=== PATIENT | female | born 1955 | race Caucasian/White ===

== ENCOUNTER 2016-10-18 08:59 | Outpatient (CLI) | payer OTHER ==
[2014-03-16 16:08] VITALS: BP 120/83
[2016-10-18 10:37] LABS: eGFR (African) > 60; eGFR (Non-African) > 60
== END 2016-10-18 09:00 ==
LOC: LAB 08:59
PROVIDERS: ATTEND Family Medicine
DX: E78.2 Mixed hyperlipidemia (principal)
CPT/HCPCS: 36415; 80053; 80061

== ENCOUNTER 2018-01-30 17:55 | Emergency (ER) | payer OTHER ==
[2018-01-30 18:08] VITALS: BP 120/68
--- NOTE | 2018-01-30 18:27 | ED Physician Documentation ---
General Adult - HISTORIAN Historian: patient - HPI Stated Complaint: TOE PAIN Chief Complaint: General Adult Onset: hours Timing: still present Severity: moderate Further Comments: yes (Pt is a 62 yo female who partially avulsed the toenail of her L great toe. Pt was wearing sandals while cleaning the refrigerator and stubbed her toe on a metal lip on the bottom of the fridge, pulling her L great toenail back.) - ROS CONST: no problems EYES/ENT: none CVS/RESP: none GI/: none MS/SKIN/LYMPH: other (L great toenail injury) - PAST HX Past History: other (Heart Dz, HLD, HTN) Allergies/Adverse Reactions: Allergies Allergy/AdvReac Type Severity Reaction Status Date / Time buspirone HCl [From BuSpar] Allergy Unknown Verified 01/30/18 18:08 morphine Allergy Unknown Verified 01/30/18 18:08 niacin Allergy Unknown Verified 01/30/18 18:08 Penicillins Allergy Unknown Verified 01/30/18 18:08 Home Medications: Ambulatory Orders Medication Instructions Recorded Aspirin EC [Ecotrin] 81 mg PO DAILY 03/16/14 Calcium Carb 600Mg/Vit D-3 400 1 tab PO DAILY 03/16/14 [CALTRATE WITH D-3] - SOCIAL HX Smoking History: quit greater than 1 year - FAMILY HX Family History: No - VITAL SIGNS Vital Signs: Vital Signs Temp Pulse Resp BP Pulse Ox 96.7 F L 83 22 120/68 97 01/30/18 18:05 01/30/18 18:05 01/30/18 18:05 01/30/18 18:05 01/30/18 18:05 - REVIEWED ASSESSMENTS Nursing Assessment Reviewed: Yes Vitals Reviewed: Yes Progress - Progress Progress: Nail taped in place in ER. Triple Antibiotic applied. Tetanus utd. D/c instructions: Tape nail to keep it in place and so that you don't disturb it again, as when taking off your socks or shoes. Apply topical antibiotic, such as Triple Antibiotic to the nail area twice a day for the next week. General Adult Physical Exam - PHYSICAL EXAM GENERAL APPEARANCE: mild distress NECK: normal inspection, supple RESPIRATORY: no resp distress, chest non-tender, breath sounds normal CVS: reg rate & rhythm, heart sounds normal BACK: normal inspection SKIN: other (L great toenail partial avulsion. Nail can be put back in place; some blood seen around nail edge.) EXTREMITIES: other (L great toenail partial avulsion. Nail can be put back in place; some blood seen around nail edge.) NEURO: oriented X3, motor nml, sensation nml Discharge Clincal Impression: Partial nail avulsion, L great toe Referrals: Radha Stephens MD [Primary Care Provider] - Condition: Good Disposition: 01 HOME, SELF-CARE Decision to Admit: NO Decision Time: 18:30
== END 2018-01-30 18:30 | disposition home or self-care (01) ==
LOC: ED 17:55
DX: S91.202A Unspecified open wound of left great toe with damage to nail, initial encounter (principal); W22.8XXA Striking against or struck by other objects, initial encounter; Y92.9 Unspecified place or not applicable; Y93.01 Activity, walking, marching and hiking; Y99.9 Unspecified external cause status
CPT/HCPCS: 99282

== ENCOUNTER 2018-02-21 10:47 | Outpatient (CLI) | payer OTHER ==
[2018-02-21 11:36] LABS: eGFR (Non-African) > 60
== END 2018-02-21 10:50 ==
LOC: LAB 10:47
PROVIDERS: ATTEND Family Medicine
DX: E78.2 Mixed hyperlipidemia (principal)
CPT/HCPCS: 36415; 80053; 80061

== ENCOUNTER 2018-03-01 14:29 | Outpatient (CLI) | payer OTHER ==
--- NOTE | 2018-03-03 11:09 | OP Clinic Progress Note ---
SUBJECTIVE: Fifi Blevins is a 63-year-old female who presented today for the first time to see me for a left great toenail that needs to be pulled supposedly, as well as a previously infected left great toe. The patient was seen originally on January 30, 2018, for having jammed her toe against the metal lip of the underside of her refrigerator where it loosened the nail and it was taped down and then later on saw Dr. Stephens in the office earlier this month and it was infected and she was placed on Keflex. The patient has 1 more pill left and says that she will finish it tonight or tomorrow. The patient was sent to me to have the left great toenail removed, as it is very loose at this time, and was recommended to have it removed by Dr. Stephens. The patient denies any fevers, chills, nausea, vomiting, shortness of breath or chest pain at this time. The patient denies being a diabetic. The patient states that she is allergic to penicillin. The patient denies any further questions or concerns outside of the need to remove the great toenail. OBJECTIVE: Dermatologic Exam: There is slight irritation-type erythema noted at the proximal edge of the toenail at the eponychium of the left great toe. There is no other redness or warmth or drainage noted. The left great toenail is quite mobile with a small attachment at the proximal medial aspect of the great toenail. There appears to be complete separation from the toenail from the nail bed from the area that I can see under the toe, except for the spot noted above. There is no erythema, otherwise, or purulence or malodor. Vascular Exam: DP and PT pulses are 2+ to the left foot. Capillary refill times was less than 3 seconds to the toes of the left foot. No edema. Musculoskeletal Exam: There is a moderate amount of pain with slight mobility of the great toenail. There is no pain along the edges of the great toenail, however, at the folds of the skin. There are no other gross abnormalities noted musculoskeletally. Neurological Exam: Light touch sensation is intact to the toes of the left foot. ASSESSMENT: 1. Onycholysis, traumatic, of left great toe. 2. Previous infected left great toe. PLAN: [facility]. PROCEDURE: Left great toe avulsion. DESCRIPTION OF PROCEDURE: The left great toe was swabbed with an alcohol swab and local anesthesia was obtained with a 1:1 mixture of 2% lidocaine plain and 0.5% Marcaine plain totally 6 mL which was injected into the left great toe. The left great toe was checked for anesthesia and it was completely numb. The left great toe was then swabbed with Betadine to clean the area. The left great toenail was then removed and a curette utilized to make sure there was no remaining toenail present. The site was flushed with copious amounts of normal saline and then dried and triple antibiotic ointment followed by a 2 X 2 gauze, 2-inch Kamille wrap, and a 1-inch Coban was applied. There was no bleeding noted in the procedure. Patient tolerated the procedure very well. It should be noted that prior to performing any local anesthesia, the patient had the risks and benefits of surgery discussed with her and a surgical consent form was signed by the patient and witnessed by the nurse. The patient had no other questions and was excited and grateful to have the toenail removed. Aftercare instructions were given to the patient suggesting that she can take off the bandage tomorrow and she may wash the foot and shower as long as she washes the foot last and dries it and applies antibiotic and a Band-Aid daily. The patient will do this for the next week and will follow up in the [facility] with me in a week to check for any signs of infection. She is to return to clinic or call sooner if needed if any concerns of infection. MATERIALS USED FOR THE PROCEDURE: 1. 3 mL of 2% lidocaine plain. 2. 3 mL of 0.5% Marcaine plain. 3. One-inch Coban roll. 4. One packet triple antibiotic ointment. cc: Dr. Radha GARAY
== END 2018-03-01 14:30 ==
LOC: POD 14:29
PROVIDERS: ATTEND Podiatrist Foot & Ankle Surgery
DX: L60.1 Onycholysis (principal)
CPT/HCPCS: 11730

== ENCOUNTER 2018-06-22 20:22 | Emergency (ER) | payer OTHER ==
[2018-06-22] MEDS ORDERED: IPRATROPIUM/ALBUTEROL SULFATE 3 ML AMPUL.NEB NEB ONE (20:26)
[2018-06-22] MEDS ORDERED: methylPREDNISolone SOD SUCC 125 MG/2 ML VIAL IVP ONE (20:27)
[2018-06-22] MEDS ORDERED: LORazepam 1 MG TABLET PO ONE (20:27)
--- NOTE | 2018-06-22 20:32 | ED Physician Documentation ---
Dyspnea - HISTORIAN Historian: patient - HPI Stated Complaint: shortness of air Chief Complaint: Dyspnea Onset: hours (1) Duration: continues in ED Initiating Event: upper respiratory illness, other (anxiety ) Exacerbated By: other (anxiety ) Associated Symptoms: productive cough, anxiety. denies: chills, fever, chest pain, chest discomfort Further Comments: yes (Per friend she has tremors at all times but pt and spouse were having "an issue" with the next door neighbor and she was upset - she has had a cough x 2 days. No fever. she has COPD. She used her neb over one hour ago. She does not wear supplemental oxygen at home. She has no pain in her chest she feels short on air.) - ROS CONST: no problems EYES/ENT: denies: sore throat, nasal drainage GI/: denies: problems urinating, vomiting, nausea NEURO/PSYCH: denies: headache MS/SKIN/LYMPH: denies: rash - PAST HX Lung Disease: COPD Other History: hyperlipidemia, other (parkinsons ) Immunizations: UTD Allergies/Adverse Reactions: Allergies Allergy/AdvReac Type Severity Reaction Status Date / Time buspirone HCl [From BuSpar] Allergy Unknown Verified 06/22/18 20:51 morphine Allergy Unknown Verified 06/22/18 20:51 niacin Allergy Unknown Verified 06/22/18 20:51 Penicillins Allergy Unknown Verified 06/22/18 20:51 Home Medications: Ambulatory Orders Medication Instructions Recorded Aspirin EC [Ecotrin] 81 mg PO DAILY 03/16/14 Calcium Carb 600Mg/Vit D-3 400 1 tab PO DAILY 03/16/14 [CALTRATE WITH D-3] Clonazepam [Klonopin] 0.25 tab PO PRN PRN 06/22/18 - SOCIAL HX Smoking History: non-smoker Alcohol Use: none Drug Use: none - FAMILY HX Family History: none - VITAL SIGNS Vital Signs: Vital Signs Temp Pulse Resp BP Pulse Ox 120/68 01/30/18 18:30 - REVIEWED ASSESSMENTS Nursing Assessment Reviewed: Yes Vitals Reviewed: Yes Progress - Progress Progress: 2100: inspiration effort improved after duo neb. Visitor called police they are at bedside DG ED Results Lab/Radiology - Radiology Radiology Impressions: Portable chest Clinical history: Cough. Shortness of breath. Findings: Examination of the chest in single portable AP view demonstrates scoliosis of the thoracic spine convex to the right. Cardiac silhouette is prominent and the aorta is atherosclerotic. Retrocardiac region is dense consistent with left effusion and left basilar atelectasis. Mild bronchial wall thickening in the perihilar regions suggests congestion or bronchitis. Impression: 1. Left pleural effusion with left basilar infiltrate or atelectasis. 2. Scoliosis. 3. Perihilar congestion or bronchitis. Electronically signed on Jun 22, 2018 9:03:07 PM EDUCATIONAL ADMINISTRATION TEACHER by: Ibrahima Dietz - Orders Orders: ED Orders Category Date Time Status Assess pulse oximetry Q1H Care 06/22/18 20:26 Active IV Started NOW Care 06/22/18 20:27 Active CHEST 1VIEW [RAD] Stat Exams 06/22/18 Ordered CBC/PLATELET/DIFF Routine Lab 06/22/18 Ordered CMP Routine Lab 06/22/18 Ordered PT-INR Routine Lab 06/22/18 Ordered Ipratropium/Albuterol Sulfate [Duoneb] Med 06/22/18 20:26 Discontinued 3 ml NEB NOW ONE LORazepam [Ativan] Med 06/22/18 20:27 Once 0.5 mg PO NOW ONE methylPREDNISolone SOD SUCC [Solu-MEDROL] Med 06/22/18 20:27 Once 125 mg IVP NOW ONE EKG WITH COMPARISON Stat Ther 06/22/18 Ordered Dyspnea Physical Exam - EXAM General Appearance: alert, mild distress EENT: eye inspection normal, no signs of dehydration Neck: nml inspection Respiratory: no resp. distress, decreased air movement, wheezes CVS: reg. rate & rhythm, pulses equal Abdomen: non-tender, no organomegaly, no distention Skin: color nml, no rash Extremities: non-tender, normal range of motion, no evidence of injury Neuro/Psych: oriented x3, other (tremor (normal per pt) ) Discharge Clincal Impression: Infiltrate of left lung present on chest x-ray, Anxiety Referrals: Radha tSephens MD [Primary Care Provider] - 2 Days Comments: 2114: discussed case with Dr Marshall he is agreeable to admission DG Condition: Fair Disposition: ADMITTED INPATIENT Decision to Admit: [id number] Date of Decison to Admit: 06/22/18 Decision Time: 21:15
[2018-06-22 20:52] LABS: MEAN CORPUSCULAR HEMOGLOBIN 28.7 pg (28.0-34.0)
[2018-06-22 20:53] LABS: BASOPHILS % 0.6 (0.0-1.5); EOSINOPHILS % 3.9 % (0.0-6.8); NEUTROPHILS # 8.1 # k/uL (1.4-7.7)
[2018-06-22 21:01] LABS: eGFR (Non-African) > 60
[2018-06-22] MEDS ORDERED: AZITHROMYCIN 500 MG in 0.9 % SODIUM CHLORIDE 250 ML IV ONE (21:15)
[2018-06-22 21:51] VITALS: BP 119/96
--- NOTE | 2018-06-22 23:10 | Diagnostic Imaging Report ---
CAROLINA POLO [facility] [address] [facility] [address], [place]. [address] Report Submission Date: Jun 22, 2018 9:03:07 PM CAR REPAIRMAN Patient Study Name: VERONICA MENA Date: Jun 22, 2018 8:34:59 PM CAR REPAIRMAN Modality Type: DX Gender: F Description: CHEST : 51 Institution: [facility] Physician: CAROLINA POLO Portable chest Clinical history: Cough. Shortness of breath. Findings: Examination of the chest in single portable AP view demonstrates scoliosis of the thoracic spine convex to the right. Cardiac silhouette is prominent and the aorta is atherosclerotic. Retrocardiac region is dense consistent with left effusion and left basilar atelectasis. Mild bronchial wall thickening in the perihilar regions suggests congestion or bronchitis. Impression: 1. Left pleural effusion with left basilar infiltrate or atelectasis. 2. Scoliosis. 3. Perihilar congestion or bronchitis. Electronically signed on Jun 22, 2018 9:03:07 PM CAR REPAIRMAN by: Ibrahima GARAY
== END 2018-06-22 21:48 | disposition other institution (70) ==
LOC: ED 20:22
DX: R91.8 Other nonspecific abnormal finding of lung field (principal); F41.9 Anxiety disorder, unspecified
CPT/HCPCS: 36415; 71045; 80053; 85025; 85610; 87040; 93005; J0456; J2930; J7050; 94640; 96365; 96366; 96375; 99284; S1016

== ENCOUNTER 2018-06-22 21:50 | Inpatient (IN) | payer OTHER ==
[2018-06-22 22:45] VITALS: BMI 34.2
[2018-06-22] MEDS ORDERED: clonazePAM 0.5 MG TABLET PO PRN (22:46)
[2018-06-22] MEDS ORDERED: FLUTICASONE/SALMETEROL 250-50 INHALER IH SCH (23:00)
[2018-06-22] MEDS: 0.9 % SODIUM CHLORIDE 1,000 ML IV SCH (23:30)
[2018-06-22] MEDS: ATORVASTATIN CALCIUM 20 MG TABLET PO SCH (23:32)
[2018-06-22] MEDS: TEMAZEPAM 15 MG CAP PO PRN (23:32)
[2018-06-22] MEDS: TOPIRAMATE 50 MG TABLET PO SCH (23:32)
[2018-06-23] MEDS: IPRATROPIUM/ALBUTEROL SULFATE 3 ML AMPUL.NEB NEB SCH ×7 (00:44→21:32)
[2018-06-23] MEDS: FAMOTIDINE 20 MG TABLET PO SCH (06:13)
[2018-06-23 06:53] LABS: BASOPHILS % 0.2 (0.0-1.5); EOSINOPHILS % 0.9 % (0.0-6.8); MEAN CORPUSCULAR HEMOGLOBIN 28.4 pg (28.0-34.0); NEUTROPHILS # 6.6 # k/uL (1.4-7.7)
[2018-06-23 07:31] LABS: eGFR (Non-African) > 60
--- NOTE | 2018-06-23 08:06 | History and Physical Report ---
History of Present Illnes - History of Present Illness Reason for Visit: dyspnea. History of Present Illness: 63yo white female with a history of COPD and asthma. States that over the last 3-4 days she has been having some increase SOB and wheezing. She has developed a productive cough of [place] phlegm with some hemophysis noted. She has had some chills but no fever noted. She denies any chest pain but has had some increasing chest tightness. Patient presented to the ED and was noted to be hypoxic with SAO2 of 87% on RA. Was given some breathing treatments without much improvement. She was found to have a LLL infiltrate/atelectisis with a pleural effusion. She was admitted to hospital for further evaluation and treatment. 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 denies: Colonoscopy Influenza Vaccine: Current for this Influenza Season Pneumonia Vaccine: Yes Resuscitation Status: Resusciation Status Resuscitation Status Full Code - Unable to Obtain History Unable to Obtain: No Review of Systems - Review of Systems Constitutional: Chills, Weakness. negative: Fever Eyes: negative: pain, vision change, conjunctivae inflammation ENT: negative: Ear Pain, Ear Discharge, Nose Pain, Nose Discharge Respiratory: Cough, Shortness of Breath, SOB with Excertion, Pleuritic Pain Cardiovascular: negative: Chest Pain, Palpitations Gastrointestinal: Constipation. negative: Nausea, Vomiting, Abdominal Pain, Melena, Hematochezia Genitourinary: negative: Dysuria, Frequency, Incontinence Musculoskeletal: negative: Neck Pain Skin: negative: Rash Neurological: Incoordination, Other (tremor). negative: Weakness, Numbness - Medications/Allergies Allergies/Adverse Reactions: Allergies Allergy/AdvReac Type Severity Reaction Status Date / Time buspirone HCl [From BuSpar] Allergy Unknown Verified 06/23/18 07:54 morphine Allergy Unknown Verified 06/23/18 07:54 niacin Allergy Unknown Verified 06/23/18 07:54 Penicillins Allergy Unknown Verified 06/23/18 07:54 Current Inpatient Medications: Current Inpatient Medications Albuterol/Ipratropium (Duoneb) 3 ml NEB Q4 [facility] Last Admin: 06/23/18 06:24 Dose: 3 ml Amlodipine Besylate (Norvasc) 10 mg PO DAILY [facility] Aspirin (Aspirin) 81 mg PO DAILY [facility] Atorvastatin Calcium (Lipitor) 20 mg PO HS [facility] Last Admin: 06/22/18 23:32 Dose: 20 mg Clonazepam (Klonopin) 0.25 mg PO TID PRN PRN Reason: Agitation Famotidine (Pepcid) 20 mg PO 0700 [facility] Last Admin: 06/23/18 06:13 Dose: 20 mg Azithromycin 500 mg/ Sodium (Chloride) 250 mls @ 125 mls/hr IV Q24H [facility] Stop: 07/03/18 17:59 LEVOFLOXACIN 500MG/D5W 100ML (500 mg/ PREMIX BAG) 100 mls @ 100 mls/hr IV DAILY [facility] Stop: 07/07/18 08:59 Sodium Chloride (Normal Saline) 1,000 mls @ 100 mls/hr IV Q10H [facility] Last Admin: 06/22/18 23:30 Dose: 100 mls/hr Loratadine (Claritin) 10 mg PO DAILY [facility] Methylprednisolone Sodium Succinate (Solu-Medrol) 125 mg IVP Q12 [facility] Fluticasone/Salmeterol (Advair 250-50 Diskus) 1 each IH BID [facility] Last Admin: 06/22/18 23:18 Dose: Not Given Temazepam () 30 mg PO HS PRN PRN Reason: Agitation Last Admin: 06/22/18 23:32 Dose: 30 mg Tiotropium [place] (Spiriva) 1 inh IH DAILY [facility] Topiramate (Topamax) 50 mg PO BID [facility] Last Admin: 06/22/18 23:32 Dose: 50 mg Exam - Exam Vital Signs: Vital Signs (72 hours) 06/22/18 06/22/18 06/22/18 21:48 22:21 22:35 Temperature 97.5 F L Pulse Rate [ 94 H Left] Respiratory 20 Rate Blood Pressure 119/96 Blood Pressure 119/96 123/60 [Right Arm] O2 Sat by Pulse 96 96 Oximetry 06/23/18 06/23/18 06/23/18 02:00 05:37 05:59 Temperature 97.6 F 97.2 F L Pulse Rate [ 92 H 86 86 Left] Respiratory 20 20 20 Rate Blood Pressure Blood Pressure 120/64 118/70 [Right Arm] O2 Sat by Pulse 96 95 Oximetry General: Alert, Oriented to Person, Oriented to Place, Oriented to Time, Cooperative, Mild distress HEENT: Atraumatic, PERRLA, EOMI, Mouth Mucous membr. moist/[place], Nose Mucous membr. moist/[place], Hearing Grossly Normal Neck: Normal Range of Motion Carotids: WNL Thyroid: WNL Lungs: Normal air movement, Speaks full Sentences, Rales (few), Rhonchi. No: Wheezes Cardiovascular: Regular rate, Normal S1, Normal S2, No murmurs. No: Rubs Murmur: No: Systolic Murmur Abdomen: Normal bowel sounds, Soft, No tenderness, No hepatospenomegaly, No masses Integumentary: Normal, [place], Warm, Dry Extremities: No clubbing, No cyanosis, No edema, Normal pulses, No tend erness/swelling Neurological: Normal gait, Normal speech, Strength Equal Bilat, Normal tone, Sensation intact, Cranial nerves 3-12 NL, Reflexes 2+ Psych/Mental Status: Mental status NL, Mood NL, Appropriate Affect, Intact Judgment - Laboratory Results Laboratory Results: Laboratory Results 06/23/18 06/23/18 06:30 06:30 WBC 7.80 RBC 4.69 Hgb 13.3 Hct 40.8 MCV 87.0 MCH 28.4 MCHC 32.7 RDW 13.3 Plt Count 225 Neut % (Auto) 85.3 H Lymph % (Auto) 12.6 L [place] % (Auto) 1.0 Eos % (Auto) 0.9 Baso % (Auto) 0.2 Neut # (Auto) 6.6 Lymph # (Auto) 1.0 [place] # (Auto) 0.1 Eos # (Auto) 0.1 Baso # (Auto) 0.0 Sodium 141 Potassium 3.7 Chloride 111 H Carbon Dioxide 20 L BUN 15 Creatinine 0.68 Estimated Creat Clear 121 Est GFR ( Amer) > 60 Est GFR (Non-Af Amer) > 60 Glucose 174 H Calcium 8.4 Total Bilirubin 0.6 AST 16 ALT 12 L Alkaline Phosphatase 75 Total Protein 6.5 Albumin 4.1 Assessment/Plan - Assessment/Plan (1) Essential tremor Status: Acute Current Visit: Yes (2) Hypertension Status: Acute Current Visit: Yes (3) COPD (chronic obstructive pulmonary disease) Status: Acute Current Visit: Yes (4) Asthma Status: Acute Current Visit: Yes (5) Infiltrate of left lung present on chest x-ray Status: Acute Current Visit: No VTE Assessment - RISK FACTOR SCORE VTE RISK FACTOR SCORES: AGE OVER 60 YEARS, ANTICIPATED BED CONFINEMENT OR IMMOBILIZATION > 24 HOURS - RISK VTE MODERATE RISK: SCORE OF 2 (RISK PROXIMAL DVT 2-4%) PROPHYAXIS NEEDED
[2018-06-23] MEDS ORDERED: methylPREDNISolone SOD SUCC 125 MG/2 ML VIAL IVP SCH (09:00)
[2018-06-23] MEDS ORDERED: LEVOFLOXACIN 500MG/D5W 100ML 100 ML IV ONE (09:07)
[2018-06-23] MEDS: LEVOFLOXACIN 500MG/D5W 100ML 500 MG in PREMIX BAG 1 BAG IV SCH (09:22)
[2018-06-23] MEDS: LORATADINE 10 MG TABLET PO SCH (09:22)
[2018-06-23] MEDS: ASPIRIN 81 MG CHEW TAB PO SCH (09:22)
[2018-06-23] MEDS: 0.9 % SODIUM CHLORIDE 1,000 ML IV SCH ×2 (09:23→20:44)
[2018-06-23] MEDS: ENOXAPARIN SODIUM 30 MG/0.3 ML DISP.SYRIN SQ SCH (09:23)
[2018-06-23] MEDS: amLODIPine BESYLATE 5 MG TABLET PO SCH (09:23)
[2018-06-23] MEDS: TOPIRAMATE 50 MG TABLET PO SCH ×2 (09:24→20:43)
[2018-06-23] MEDS: TIOTROPIUM BROMIDE INHALER IH SCH (09:24)
[2018-06-23] MEDS ORDERED: methylPREDNISolone SOD SUCC 40 MG/ML VIAL ONE ×2 (09:56→20:40)
[2018-06-23] MEDS: methylPREDNISolone SOD SUCC 125 MG/2 ML VIAL IVP SCH ×2 (10:01→20:50)
[2018-06-23] MEDS: AZITHROMYCIN 500 MG in 0.9 % SODIUM CHLORIDE 250 ML IV SCH (18:07)
[2018-06-23] MEDS: ATORVASTATIN CALCIUM 20 MG TABLET PO SCH (20:43)
[2018-06-23] MEDS: TEMAZEPAM 15 MG CAP PO PRN (23:08)
[2018-06-24] MEDS: IPRATROPIUM/ALBUTEROL SULFATE 3 ML AMPUL.NEB NEB SCH ×6 (02:34→22:37)
[2018-06-24] MEDS: 0.9 % SODIUM CHLORIDE 1,000 ML IV SCH ×2 (06:13→18:10)
[2018-06-24] MEDS: FAMOTIDINE 20 MG TABLET PO SCH (06:15)
[2018-06-24] MEDS ORDERED: LEVOFLOXACIN 500MG/D5W 100ML 100 ML IV ONE (08:22)
--- NOTE | 2018-06-24 08:49 | Diagnostic Imaging Report ---
[facility] [address] [facility] [address] [place] [address]. [id number] Report Submission Date: Jun 24, 2018 8:44:45 AM DYNAMITE RECLAIMER Patient Study Name: VERONICA MENA Date: Jun 24, 2018 8:12:16 AM DYNAMITE RECLAIMER Modality Type: DX Gender: F Description: CHEST : 51 Institution: [facility] Physician: [facility] Chest, 2 view History: PT STATES COUGH, CHEST TIGHTNESS Findings: Elli is made to exam dated 06/22/2018. The heart size is normal. The lungs are clear with resolution of left basilar atelectasis.. There is no pleural effusion is now present.. The osseous structures are normal. Impression: 1. No acute pulmonary disease. Electronically signed on Jun 24, 2018 8:44:45 AM DYNAMITE RECLAIMER by: Poli GARAY
[2018-06-24 09:06] LABS: MEAN CORPUSCULAR HEMOGLOBIN 28.8 pg (28.0-34.0)
[2018-06-24 09:07] LABS: BASOPHILS % 0.4 (0.0-1.5); NEUTROPHILS # 11.8 # k/uL (1.4-7.7)
[2018-06-24] MEDS: LEVOFLOXACIN 500MG/D5W 100ML 500 MG in PREMIX BAG 1 BAG IV SCH (09:16)
[2018-06-24] MEDS: TIOTROPIUM BROMIDE INHALER IH SCH (09:17)
[2018-06-24] MEDS: ENOXAPARIN SODIUM 30 MG/0.3 ML DISP.SYRIN SQ SCH (09:17)
[2018-06-24] MEDS: TOPIRAMATE 50 MG TABLET PO SCH ×2 (09:17→20:53)
[2018-06-24] MEDS: LORATADINE 10 MG TABLET PO SCH (09:17)
[2018-06-24] MEDS: amLODIPine BESYLATE 5 MG TABLET PO SCH (09:17)
[2018-06-24] MEDS: ASPIRIN 81 MG CHEW TAB PO SCH (09:17)
[2018-06-24 09:23] LABS: eGFR (Non-African) > 60
[2018-06-24] MEDS ORDERED: methylPREDNISolone SOD SUCC 40 MG/ML VIAL ONE ×2 (09:26→20:47)
[2018-06-24] MEDS ORDERED: BENZONATATE 100 MG CAPSULE PO PRN (09:29)
[2018-06-24] MEDS: methylPREDNISolone SOD SUCC 125 MG/2 ML VIAL IVP SCH ×2 (09:31→20:52)
--- NOTE | 2018-06-24 09:31 | Inpatient Progress Note ---
Subjective - Required Recertification Statement I anticipate X number of days because-include discharge plan: 1 day - Review of Systems Events since last encounter: Patient states that she does seem to be doing some better with her breathing status at this time. Patient has been walking to the bathroom but continued to get short of breath. Patient stated her cough seem to be something that is keeping her awake at night. Patient stated her cough is productive up some green phlegm but does appear to be clearing some. Patient denies any chest pain. Objective - Exam Vitals and I&O: Vital Signs Temp 98.3 F 06/24/18 05:41 Pulse 83 06/24/18 06:00 Resp 18 06/24/18 08:41 BP 128/73 06/24/18 05:41 Pulse Ox 97 06/24/18 05:41 Intake & Output 06/23/18 06/23/18 06/24/18 11:59 23:59 11:59 Intake Total 240 1070 1540 Output Total 1101 1400 Balance 240 -31 140 Weight 79.379 kg 79.379 kg Intake: IV 1300 Right Forearm 1300 Oral 240 1070 240 Output: Urine 1101 1400 Other: Voiding Method Toilet Toilet Toilet # Voids 1 1 3 # Bowel Movements 1 General: Alert, Oriented to Person, Oriented to Place, Oriented to Time, Cooperative Neck: Supple, No JVD, No thyromegaly Lungs: Normal air movement, Speaks full Sentences, Wheezes (with forced expiration), Rales, Rhonchi Cardiovascular: Regular rate, Normal S1, Normal S2, No murmurs Abdomen: Normal bowel sounds, Soft - Results Results: Laboratory Results WBC 13.90 K/ul (4.00-12.00) H 06/24/18 08:45 RBC 4.36 M/ul (3.90-5.20) 06/24/18 08:45 Hgb 12.6 g/dL (12.0-16.0) 06/24/18 08:45 Hct 38.3 % (34.5-46.5) 06/24/18 08:45 MCV 88.0 fl (80.0-100.0) 06/24/18 08:45 MCH 28.8 pg (28.0-34.0) 06/24/18 08:45 MCHC 32.8 g/dL (30.0-36.0) 06/24/18 08:45 RDW 13.1 % (11.3-14.3) 06/24/18 08:45 Plt Count 256 K/mm3 (130-400) 06/24/18 08:45 Neut % (Auto) 84.9 % (39.0-79.0) H 06/24/18 08:45 Lymph % (Auto) 8.7 % (16.0-50.0) L 06/24/18 08:45 [place] % (Auto) 5.0 % (0.0-11.0) 06/24/18 08:45 Eos % (Auto) 1.0 % (0.0-6.8) 06/24/18 08:45 Baso % (Auto) 0.4 (0.0-1.5) 06/24/18 08:45 Neut # (Auto) 11.8 # k/uL (1.4-7.7) H 06/24/18 08:45 Lymph # (Auto) 1.2 # k/uL (0.6-4.0) 06/24/18 08:45 [place] # (Auto) 0.7 # k/uL (0.0-0.9) 06/24/18 08:45 Eos # (Auto) 0.1 # k/uL (0.0-0.6) 06/24/18 08:45 Baso # (Auto) 0.1 # k/uL (0.0-0.5) 06/24/18 08:45 Sodium 142 mmol/L (136-145) 06/24/18 08:45 Potassium 3.8 mmol/L (3.5-5.1) 06/24/18 08:45 Chloride 116 mmol/L (98-107) H 06/24/18 08:45 Carbon Dioxide 18 mmol/L (22-30) L 06/24/18 08:45 BUN 12 mg/dL (7-17) 06/24/18 08:45 Creatinine 0.64 mg/dL (0.52-1.04) 06/24/18 08:45 Estimated Creat Clear 129 06/24/18 08:45 Est GFR ( Amer) > 60 (60-) 06/24/18 08:45 Est GFR (Non-Af Amer) > 60 (60-) 06/24/18 08:45 Glucose 194 mg/dL (74-106) H 06/24/18 08:45 Calcium 8.2 mg/dL (8.4-10.2) L 06/24/18 08:45 Total Bilirubin 0.3 mg/dL (0.2-1.3) 06/24/18 08:45 AST 16 U/L (15-46) 06/24/18 08:45 ALT 16 U/L (13-69) 06/24/18 08:45 Alkaline Phosphatase 66 U/L (38-126) 06/24/18 08:45 Total Protein 6.0 g/dL (6.3-8.2) L 06/24/18 08:45 Albumin 3.7 g/dL (3.5-5.0) 06/24/18 08:45 Assessment/Plan - Assessment/Plan (1) Essential tremor Status: Chronic Current Visit: Yes (2) Hypertension Status: Chronic Current Visit: Yes Qualifiers: Hypertension type: essential hypertension Qualified Code(s): I10 - Essential (primary) hypertension Assessment: Stable on home medications. (3) COPD (chronic obstructive pulmonary disease) Status: Chronic Current Visit: Yes Qualifiers: COPD type: emphysema Assessment: Stable to improved (4) Asthma Status: Chronic Current Visit: Yes Qualifiers: Asthma severity: mild Asthma persistence: intermittent Assessment: Stable to improved. (5) Infiltrate of left lung present on chest x-ray Status: Acute Current Visit: No Assessment: improved on chest x-ray.
[2018-06-24] MEDS ORDERED: guaiFENesin 600 MG TAB.ER.12H PO ONE ×2 (12:48→20:46)
[2018-06-24] MEDS: guaiFENesin 600 MG TAB.ER.12H PO SCH ×2 (12:50→20:51)
[2018-06-24] MEDS: AZITHROMYCIN 500 MG in 0.9 % SODIUM CHLORIDE 250 ML IV SCH (18:10)
[2018-06-24] MEDS: ATORVASTATIN CALCIUM 20 MG TABLET PO SCH (20:51)
[2018-06-24] MEDS: TEMAZEPAM 15 MG CAP PO PRN (20:53)
[2018-06-25] MEDS: IPRATROPIUM/ALBUTEROL SULFATE 3 ML AMPUL.NEB NEB SCH ×6 (01:11→22:05)
[2018-06-25] MEDS: 0.9 % SODIUM CHLORIDE 1,000 ML IV SCH ×2 (01:14→18:24)
[2018-06-25] MEDS: FAMOTIDINE 20 MG TABLET PO SCH (06:09)
[2018-06-25] MEDS ORDERED: guaiFENesin 600 MG TAB.ER.12H PO ONE ×2 (08:43→19:40)
[2018-06-25] MEDS ORDERED: methylPREDNISolone SOD SUCC 40 MG/ML VIAL ONE ×2 (08:52→19:41)
[2018-06-25] MEDS: methylPREDNISolone SOD SUCC 125 MG/2 ML VIAL IVP SCH ×2 (08:57→20:55)
[2018-06-25] MEDS: amLODIPine BESYLATE 5 MG TABLET PO SCH (09:30)
[2018-06-25] MEDS: guaiFENesin 600 MG TAB.ER.12H PO SCH ×2 (09:30→20:54)
[2018-06-25] MEDS: ASPIRIN 81 MG CHEW TAB PO SCH (09:30)
[2018-06-25] MEDS: LORATADINE 10 MG TABLET PO SCH (09:30)
[2018-06-25] MEDS: ENOXAPARIN SODIUM 30 MG/0.3 ML DISP.SYRIN SQ SCH (09:30)
[2018-06-25] MEDS: TOPIRAMATE 50 MG TABLET PO SCH ×2 (09:31→20:54)
[2018-06-25] MEDS: TIOTROPIUM BROMIDE INHALER IH SCH (09:31)
[2018-06-25] MEDS ORDERED: LEVOFLOXACIN 500MG/D5W 100ML 100 ML IV ONE (09:39)
[2018-06-25] MEDS: LEVOFLOXACIN 500MG/D5W 100ML 500 MG in PREMIX BAG 1 BAG IV SCH (09:45)
--- NOTE | 2018-06-25 12:42 | Discharge Summary ---
Discharge Summary - Discharge Sumary History of Present Illness: 63yo white female with a history of COPD and asthma. States that over the last 3-4 days she has been having some increase SOB and wheezing. She has developed a productive cough of [place] phlegm with some hemophysis noted. She has had some chills but no fever noted. She denies any chest pain but has had some increasing chest tightness. Patient presented to the ED and was noted to be hypoxic with SAO2 of 87% on RA. Was given some breathing treatments without much improvement. She was found to have a LLL infiltrate/atelectisis with a pleural effusion. She was admitted to hospital for further evaluation and treatment. Condition at Discharge: Stable Home Medications: Ambulatory Orders Medication Instructions Recorded Aspirin EC [Ecotrin] 81 mg PO DAILY 03/16/14 Calcium Carb 600Mg/Vit D-3 400 1 tab PO DAILY 03/16/14 [CALTRATE WITH D-3] Clonazepam [Klonopin] 0.25 tab PO PRN PRN 06/22/18 Azithromycin 250 mg PO D #3 tablet 06/25/18 Benzonatate [Tessalon Perles] 200 mg PO TID PRN #20 capsule 06/25/18 Levofloxacin [Levaquin] 500 mg PO D #7 tablet 06/25/18 predniSONE [Deltasone] 20 mg PO BID #32 tablet 06/25/18 Consultations this Visit: None Allergies/Adverse Reactions: Allergies Allergy/AdvReac Type Severity Reaction Status Date / Time buspirone HCl [From BuSpar] Allergy Unknown Verified 06/23/18 07:54 morphine Allergy Unknown Verified 06/23/18 07:54 niacin Allergy Unknown Verified 06/23/18 07:54 Penicillins Allergy Unknown Verified 06/23/18 07:54 Discharge Summary: On admission patient was felt to have an exacerbation of COPD with possible developing pneumonia. Patient was felt to have a infiltrate on chest x-ray. Patient was started on high flow nebulization treatments of DuoNeb, IV Solu- Medrol, and supplemental oxygen. With the IVs steroid therapy patient did developed a leukocytosis and mild hyperglycemia. Patient was started on some Levaquin and azithromycin. Repeat chest x-ray showed clearing of the infiltrate. It was felt that most of the patient symptoms were related to a COPD exacerbation. At the time to discharge patient was able to be discharged on room air oxygen. - Final Diagnosis (1) COPD exacerbation Problems: improved (2) Essential tremor Problems: stable (3) Hypertension Problems: stable on home medications (4) Asthma Problems: stable
[2018-06-25] MEDS: AZITHROMYCIN 500 MG in 0.9 % SODIUM CHLORIDE 250 ML IV SCH (18:26)
[2018-06-25] MEDS ORDERED: MONTELUKAST SODIUM 10 MG TABLET PO ONE (19:41)
[2018-06-25] MEDS: ATORVASTATIN CALCIUM 20 MG TABLET PO SCH (20:53)
[2018-06-25] MEDS ORDERED: MONTELUKAST SODIUM 10 MG TABLET PO SCH (21:00)
--- NOTE | 2018-06-25 21:38 | Inpatient Progress Note ---
Subjective - Required Recertification Statement I anticipate X number of days because-include discharge plan: 1 day - Review of Systems Events since last encounter: Patient stated her breathing does seem to be better than working today ability to going who with this time. Patient states he still has some shortness of breath and increased wheezing with exertion. Patient has been having some chest tightness with coughing. General: Chills Pulmonary: Dyspnea, Cough. Denies: Pleuritic Chest Pain Cardiovascular: Denies: Chest Pain, Palpitations Gastrointestinal: Denies: Nausea, Vomiting Objective - Exam Vitals and I&O: Vital Signs Temp 97.4 F L 06/25/18 17:50 Pulse 94 H 06/25/18 18:00 Resp 20 06/25/18 18:00 BP 138/69 06/25/18 17:50 Pulse Ox 96 06/25/18 17:50 Intake & Output 06/24/18 06/25/18 06/25/18 23:59 11:59 23:59 Intake Total 2930 1000 640 Output Total 1999 2699 1900 Balance 930 -1700 -1260 Weight 81.193 kg Intake: IV 850 760 Right Forearm 850 760 Oral 2080 240 640 Output: Urine 19990 Other: Voiding Method Toilet Toilet Toilet # Voids 4 3 # Bowel Movements 0 1 General: Alert, Oriented to Person, Oriented to Place, Oriented to Time, Cooperative Neck: Supple Lungs: Speaks full Sentences, Wheezes (mild wheezingL>R), Rhonchi (few scattered, improved over yesterday) Cardiovascular: Regular rate, Normal S1, Normal S2, No murmurs Abdomen: Normal bowel sounds, Soft, No tenderness Extremities: No edema Neurological: Other (essential tremor) Psych/Mental Status: Mental status NL, Mood NL, Appropriate Affect, Intact Judgment - Results Results: Laboratory Results WBC 13.90 K/ul (4.00-12.00) H 06/24/18 08:45 RBC 4.36 M/ul (3.90-5.20) 06/24/18 08:45 Hgb 12.6 g/dL (12.0-16.0) 06/24/18 08:45 Hct 38.3 % (34.5-46.5) 06/24/18 08:45 MCV 88.0 fl (80.0-100.0) 06/24/18 08:45 MCH 28.8 pg (28.0-34.0) 06/24/18 08:45 MCHC 32.8 g/dL (30.0-36.0) 06/24/18 08:45 RDW 13.1 % (11.3-14.3) 06/24/18 08:45 Plt Count 256 K/mm3 (130-400) 06/24/18 08:45 Neut % (Auto) 84.9 % (39.0-79.0) H 06/24/18 08:45 Lymph % (Auto) 8.7 % (16.0-50.0) L 06/24/18 08:45 [place] % (Auto) 5.0 % (0.0-11.0) 06/24/18 08:45 Eos % (Auto) 1.0 % (0.0-6.8) 06/24/18 08:45 Baso % (Auto) 0.4 (0.0-1.5) 06/24/18 08:45 Neut # (Auto) 11.8 # k/uL (1.4-7.7) H 06/24/18 08:45 Lymph # (Auto) 1.2 # k/uL (0.6-4.0) 06/24/18 08:45 [place] # (Auto) 0.7 # k/uL (0.0-0.9) 06/24/18 08:45 Eos # (Auto) 0.1 # k/uL (0.0-0.6) 06/24/18 08:45 Baso # (Auto) 0.1 # k/uL (0.0-0.5) 06/24/18 08:45 Sodium 142 mmol/L (136-145) 06/24/18 08:45 Potassium 3.8 mmol/L (3.5-5.1) 06/24/18 08:45 Chloride 116 mmol/L (98-107) H 06/24/18 08:45 Carbon Dioxide 18 mmol/L (22-30) L 06/24/18 08:45 BUN 12 mg/dL (7-17) 06/24/18 08:45 Creatinine 0.64 mg/dL (0.52-1.04) 06/24/18 08:45 Estimated Creat Clear 129 06/24/18 08:45 Est GFR ( Amer) > 60 (60-) 06/24/18 08:45 Est GFR (Non-Af Amer) > 60 (60-) 06/24/18 08:45 Glucose 194 mg/dL (74-106) H 06/24/18 08:45 Calcium 8.2 mg/dL (8.4-10.2) L 06/24/18 08:45 Total Bilirubin 0.3 mg/dL (0.2-1.3) 06/24/18 08:45 AST 16 U/L (15-46) 06/24/18 08:45 ALT 16 U/L (13-69) 06/24/18 08:45 Alkaline Phosphatase 66 U/L (38-126) 06/24/18 08:45 Total Protein 6.0 g/dL (6.3-8.2) L 06/24/18 08:45 Albumin 3.7 g/dL (3.5-5.0) 06/24/18 08:45 Assessment/Plan - Assessment/Plan (1) Essential tremor Status: Chronic Current Visit: Yes Assessment: stable (2) Hypertension Status: Chronic Current Visit: Yes Qualifiers: Hypertension type: essential hypertension Qualified Code(s): I10 - Essential (primary) hypertension Assessment: Stable on home medications. (3) COPD (chronic obstructive pulmonary disease) Status: Chronic Current Visit: Yes Qualifiers: COPD type: emphysema Assessment: improved (4) Asthma Status: Chronic Current Visit: Yes Qualifiers: Asthma severity: mild Asthma persistence: intermittent Assessment: improved (5) Infiltrate of left lung present on chest x-ray Status: Acute Current Visit: No Assessment: stable, improved on chest x-ray
[2018-06-25] MEDS: TEMAZEPAM 15 MG CAP PO PRN (22:19)
[2018-06-26] MEDS: 0.9 % SODIUM CHLORIDE 1,000 ML IV SCH ×2 (01:31→07:09)
[2018-06-26] MEDS: IPRATROPIUM/ALBUTEROL SULFATE 3 ML AMPUL.NEB NEB SCH ×3 (02:01→08:17)
[2018-06-26] MEDS: FAMOTIDINE 20 MG TABLET PO SCH (06:25)
[2018-06-26] MEDS ORDERED: guaiFENesin 600 MG TAB.ER.12H PO ONE (07:51)
[2018-06-26] MEDS ORDERED: LEVOFLOXACIN 500MG/D5W 100ML 100 ML IV ONE (07:51)
[2018-06-26] MEDS: methylPREDNISolone SOD SUCC 125 MG/2 ML VIAL IVP SCH (08:14)
[2018-06-26 08:34] VITALS: BP 135/74
[2018-06-26] MEDS: LEVOFLOXACIN 500MG/D5W 100ML 500 MG in PREMIX BAG 1 BAG IV SCH (09:36)
[2018-06-26] MEDS: LORATADINE 10 MG TABLET PO SCH (09:36)
[2018-06-26] MEDS: ENOXAPARIN SODIUM 30 MG/0.3 ML DISP.SYRIN SQ SCH (09:36)
[2018-06-26] MEDS: ASPIRIN 81 MG CHEW TAB PO SCH (09:36)
[2018-06-26] MEDS: guaiFENesin 600 MG TAB.ER.12H PO SCH (09:37)
[2018-06-26] MEDS: TOPIRAMATE 50 MG TABLET PO SCH (09:37)
[2018-06-26] MEDS: TIOTROPIUM BROMIDE INHALER IH SCH (09:37)
[2018-06-26] MEDS: amLODIPine BESYLATE 5 MG TABLET PO SCH (09:37)
== END 2018-06-26 10:50 | disposition home or self-care (01) | DRG 93 ==
LOC: SOUTH 21:50 → UNDOADMIN 21:54 → UNDODISIN 06-26 10:50
PROVIDERS: ADMIT Family Medicine; ATTEND Family Medicine
DX: G25.0 Essential tremor (principal); R91.8 Other nonspecific abnormal finding of lung field; J44.9 Chronic obstructive pulmonary disease, unspecified
CPT/HCPCS: 36415; 71046; 80053; 85025; J0456; J1650; J1956; J2920; J2930; J3490; J7030; J7050; 99222; 99231; 99238; J1030; S1016

== ENCOUNTER 2018-07-11 09:39 | Outpatient (CLI) | payer OTHER ==
--- NOTE | 2018-07-11 20:59 | Diagnostic Imaging Report ---
JÚNIOR RIBEIRO [facility] [id number] [address] Report Submission Date: Jul 11, 2018 10:57:17 AM [employer] Patient Study Name: VERONICA MENA Date: Jul 11, 2018 12:00:00 AM [employer] Modality Type: DEXA Gender: F Description: DEXA : 51 Institution: [facility] Physician: JÚNIOR RIBEIRO Examination: Bone density History: Assess bone mineralization Comparison exams: None available Technique: DEXA protocol Findings: Average bone mineral density from L1 through L4: 0.744 grams cm2. T score: -2.1 Average bone mineral density of the left femoral neck: 0.822 grams cm2. T score: -1.5 Average bone mineral density of the right femoral neck: 0.857 grams cm2. T score: -1.2 Impression: Lumbar spine and bilateral hip osteopenia. Electronically signed on Jul 11, 2018 10:57:17 AM ADARSH by: Nik GARAY
== END 2018-07-11 09:45 ==
LOC: RAD 09:39
PROVIDERS: ATTEND Family Medicine
DX: M81.0 Age-related osteoporosis without current pathological fracture (principal)
CPT/HCPCS: 77080